=== PATIENT | male | born 1960 ===

== ENCOUNTER 2024-04-29 16:13 | Emergency (ER) | payer OTHER, BC ==
[~2024-04-29] VITALS: Ht 190.5 cm; Wt 129.3 kg
[~2024-04-29 16:13] MED LIST: LEVSOD75; LOSA50; ROSU10TA; VENL75ER
[2024-04-29 16:49] VITALS: BP 152/87
[2024-04-29] MEDS ORDERED: Ketorolac Tromethamine 15mg Vial IM ONE (17:45)
== END 2024-04-29 17:48 | disposition home or self-care (01) ==
LOC: ER 16:13
DX: S49.91XA Unspecified injury of right shoulder and upper arm, initial encounter (principal); Z79.890 Hormone replacement therapy; Z79.899 Other long term (current) drug therapy; Z59.89 Other problems related to housing and economic circumstances; W19.XXXA Unspecified fall, initial encounter
CPT/HCPCS: 73030; 73080; 96372; 99283-25; J1885

== ENCOUNTER 2024-05-14 09:46 | Day surgery (SDC) | payer OTHER, BC ==
[~2024-05-14] VITALS: Ht 190.5 cm; Wt 130.9 kg
[~2024-05-14 09:46] MED LIST changes: +Lactated Ringer's 1,000 ML IV ONE
[2024-05-14] MEDS ORDERED: CeFAZolin Sodium 2,000 MG VIAL ONE (09:47)
[2024-05-14] MEDS ORDERED: CeFAZolin Sodium 3,000 MG VIAL ONE (09:52)
--- NOTE | 2024-05-14 10:18 | NUR ---
05/14/24 1018 TATY DANG NEAR AXILLA/RIGHT SHOULDER AFTER SHAVE PREP.
[2024-05-14] MEDS ORDERED: Lactated Ringer's 1,000 ML IV ONE (10:20)
[2024-05-14] MEDS ORDERED: EPINEPhrine HCl 1 MG/ML 1ML Amp ONE ×2 (10:49→10:52)
[2024-05-14] MEDS ORDERED: Midazolam HCl 1MG / ML 2ML Vial ONE (10:50)
[2024-05-14] MEDS ORDERED: Bupivacaine 0.5% HCl 5 MG/ML 30MLVIAL ONE (10:52)
[2024-05-14] MEDS ORDERED: propofoL 20 ML IV ONE (11:14)
[2024-05-14] MEDS ORDERED: FentaNYL Citrate 50 MCG/ML 2 ML Injection ONE (11:14)
[2024-05-14] MEDS ORDERED: Rocuronium Bromide 10 MG/ML 5ML Injection IV ONE (11:23)
[2024-05-14] MEDS ORDERED: Dexamethasone Sod Phos 10 MG/ML 1ML VIAL ONE ×2 (11:24→11:25)
[2024-05-14] MEDS ORDERED: Ondansetron HCl 2 MG / ML 2ML Vial ONE ×2 (11:24→11:25)
[2024-05-14] MEDS ORDERED: SuccINYLCHOLINE Chloride 100 MG/5 ML 5MLSYR ONE (11:26)
[2024-05-14] MEDS ORDERED: Ketorolac Tromethamine 30mg Vial ONE (12:44)
[2024-05-14] MEDS ORDERED: Sugammadex Sodium 200 MG/2ML SDV (100 MG/ML) ONE (12:45)
[2024-05-14 13:55] VITALS: BP 112/65
--- NOTE | 2024-05-14 14:05 | NUR ---
05/14/[address] DISCUSSED SURGERY W/ PT AND JOANNE
[2024-05-14] MEDS ORDERED: OxyCODONE HCL 5 MG TAB ONE (14:30)
== END 2024-05-14 14:49 | disposition home or self-care (01) ==
LOC: ORSCSDS 09:46
PROVIDERS: Orthopaedic Surgery
PROC: 0RNJ4ZZ Release Right Shoulder Joint, Percutaneous Endoscopic Approach (ICD-10-PCS; principal; 2024-05-14 11:15)
PROC: 0PB94ZZ Excision of Right Clavicle, Percutaneous Endoscopic Approach (ICD-10-PCS; principal; 2024-05-14 11:15)
PROC: 0LM14ZZ Reattachment of Right Shoulder Tendon, Percutaneous Endoscopic Approach (ICD-10-PCS; principal; 2024-05-14 11:15)
DX: S46.811A Strain of other muscles, fascia and tendons at shoulder and upper arm level, right arm, initial encounter (principal); M75.41 Impingement syndrome of right shoulder; M75.21 Bicipital tendinitis, right shoulder; I10 Essential (primary) hypertension; Z79.899 Other long term (current) drug therapy; W18.30XA Fall on same level, unspecified, initial encounter; E78.5 Hyperlipidemia, unspecified; E03.9 Hypothyroidism, unspecified; F41.9 Anxiety disorder, unspecified
CPT/HCPCS: A9270; C1713; J0171; J0330; J0690; J1100; J1885; J2250; J2405; J2704; J3010; J7120